=== PATIENT | female | born 1935 | race Caucasian/White ===

== ENCOUNTER 2020-06-18 15:27 | Inpatient (IN) ==
--- NOTE | 2020-06-18 15:53 | Emergency Department Note ---
History of Present Illness General Chief complaint: Shortness of Breath/Dyspnea Time Seen by Provider: 06/18/20 15:34 Source: patient and EMS Mode of arrival: EMS Limitations: physical limitation ([place]) History of Present Illness Provider complaint: Hypoxia, fatigue Onset (ago): week(s) 3 Associated symptoms: + loss of appetite, + malaise, + shortness of breath and + weakness; no chest pain, no cough and no fever/chills This is an 85-year-old female brought in via EMS from her outpatient doctor's office after being found to have a room air oxygen saturation of 70%. Patient states over the last several weeks she has been more fatigued than usual and sleeping more. Patient states she has not had any cough or cold symptoms, denies fevers or chills, chest pain, or abdominal pain. Patient states she has chronic swelling in her lower extremities, does not feel it is significantly worse. Patient states she did feel slightly short of breath at the doctor's office, however cannot tell me when that may have started. Patient was placed on oxygen for EMS and oxygen saturations did improve. Patient states that this time she feels she is getting enough air, and she is currently on 4 L/min via nasal cannula. Patient denies any history of smoking, asthma or COPD. Patient is uncertain regarding her listed cardiac history on information brought from EMS. Patient is a poor historian at bedside and very hard of hearing which limits history taking. Pt seen during a time of high acuity and national emergency pandemic while wearing PPE. Home Medications Home Medications Medication Instructions Recorded Confirmed Type amlodipine 10 mg PO DAILY 06/18/20 06/18/20 History aspirin [Aspirin Low Dose] 81 mg PO DAILY 06/18/20 06/18/20 History atorvastatin 10 mg PO PM 06/18/20 06/18/20 History hydralazine 10 mg PO BID 06/18/20 06/18/20 History metoprolol tartrate 25 mg PO BID 06/18/20 06/18/20 History pantoprazole 20 mg PO DAILY 06/18/20 06/18/20 History Allergies Allergy/AdvReac Type Severity Reaction Status Date / Time No Known Allergies Allergy Unverified 06/18/20 18:00 Past Med/Surg History Medical History Aortic stenosis Chronic ITP (idiopathic thrombocytopenia) CKD (chronic kidney disease), stage IV Diastolic dysfunction Dyslipidemia GERD (gastroesophageal reflux disease) Hip fracture, right S/p repair Hypertension Pulmonary hypertension Surgical History History of cataract surgery History of tonsillectomy and adenoidectomy Family History Mother Heart disease Social History Smoking Status: Never smoker Hx Alcohol Use: Yes Hx Substance Use: No Preferred Language: Arabic Communication Ability: Effective Integration Developer Required: No Beliefs That Will Affect Care: None marital status: Unknown Current Living Situation: Alone Feels Safe at Home: Yes Safety Concerns: Feels Safe At This Time Assistive Devices: Glasses, Oxygen - Continuous and Walker Assistive Devices Comment: has own walker Review of Systems See HPI for pertinent positives & negatives. and A total of 10 systems reviewed and were otherwise negative Physical Exam Vital Signs Vital Signs - 24 hr 06/18/20 15:37 Temperature 36.9 C Temperature Source Oral Pulse Rate 63 Respiratory Rate 22 Respiratory Effort / Characteristics Non-Labored Respiratory Depth Normal Blood Pressure 128/56 L Blood Pressure Mean 80 Blood Pressure Position Sitting Pulse Oximetry 85 L Oxygen Delivery Method Room Air Nasal Cannula Oxygen Flow Rate 4 Sepsis Recent Fever Within 48 Hours No Sepsis New/Unexplained Change in Mental Status No Sepsis Action Taken by Nursing No Action Required Oxygen Flow Rate - Titration 4 Pulse Oximetry Post Tiitration 95 GENERAL: alert, well appearing, well nourished, no distress, non-toxic, morbidly obese, [place] EYE EXAM: normal conjunctiva, PERRL and EOM's grossly intact OROPHARYNX: no exudate, no erythema, lips, buccal mucosa, and tongue normal and mucous membranes are moist NECK: supple, no nuchal rigidity, no adenopathy, non-tender LUNGS: Clear but decreased to auscultation. Normal chest wall mechanics, no w/r, fine bibasilar rales HEART: no murmurs, S1 normal and S2 normal ABDOMEN: abdomen soft, non-tender, normo-active bowel sounds, no masses, no rebound or guarding. BACK: Back is symmetrical on inspection and there is no deformity, no midline tenderness, no CVA tenderness. SKIN: no rashes and no bruising UPPER EXTREMITIES: upper extremities are grossly normal. FROM, nml pulses b/l. LOWER EXTREMITIES: 3+ chronic appearing pitting edema. FROM, nml pulses b/l. NEURO EXAM: Normal sensorium, cranial nerves II-XII grossly intact, normal speech, no gross weakness of arms, no significant gross weakness of legs. Gross sensation intact. Course Course 1741: Updated patient and granddaughter at bedside. Granddaughter able to provide additional history about the patient recently as well as in the past regarding her chronic kidney disease and aortic stenosis. They are in agreement with plan. Patient continues to be well-appearing here with nasal cannula oxygen in place holding oxygen saturations in the mid 90s. 1754: Case discussed with Selina Muniz hospitalist service. Administered Medications Amlodipine Besylate (Amlodipine Besylate 5 Mg Tab) 10 mg PO DAILY TATE Stop: 07/19/20 08:59 Last Admin: 06/19/20 07:45 Dose: 10 mg Documented by: [id number] Aspirin (Aspirin 81 Mg Ectab) 81 mg PO DAILY TATE Stop: 07/19/20 08:59 Last Admin: 06/19/20 07:44 Dose: 81 mg Documented by: [id number] Atorvastatin Calcium (Atorvastatin 10 Mg Tab) 10 mg PO PM TATE Stop: 07/18/20 20:59 Last Admin: 06/18/20 20:31 Dose: 10 mg Documented by: [id number] Hydralazine HCl (Hydralazine 10 Mg Tab) 10 mg PO BID TATE Stop: 07/18/20 20:59 Last Admin: 06/19/20 07:44 Dose: 10 mg Documented by: [id number] Admin: 06/18/20 20:31 Dose: 10 mg Documented by: [id number] Furosemide 100 mg/ Dextrose 100 mls @ 15 mls/hr IV .Q6H40M TATE Stop: 07/19/20 10:14 Last Admin: 06/19/20 16:46 Dose: 15 mg/hr, 15 mls/hr Documented by: [id number] Infusion: 06/19/20 16:46 Dose: 15 mg/hr, 15 mls/hr Documented by: [id number] Infusion: 06/19/20 14:31 Dose: 15 mg/hr, 15 mls/hr Documented by: [id number] Admin: 06/19/20 10:35 Dose: 15 mg/hr, 15 mls/hr Documented by: [id number] Heparin Sodium/Dextrose (Heparin Sodium/Dextrose) 25,000 units in 500 mls @ 19 mls/hr IV .Q24H TATE; Protocol Stop: 07/19/20 12:59 Last Titration: 06/19/20 18:49 Dose: 950 units/hr, 19 mls/hr Documented by: [id number] Cosigned by: [id number] Titration: 06/19/20 14:31 Dose: 950 units/hr, 19 mls/hr Documented by: [id number] Cosigned by: [id number] Admin: 06/19/20 14:09 Dose: 950 units/hr, 19 mls/hr Documented by: [id number] Cosigned by: [id number] Metoprolol Tartrate (Metoprolol Tartrate 25 Mg Tab) 25 mg PO BID TATE Stop: 07/18/20 20:59 Last Admin: 06/19/20 07:45 Dose: 25 mg Documented by: [id number] Admin: 06/18/20 20:31 Dose: 25 mg Documented by: [id number] Pantoprazole Sodium (Pantoprazole 40 Mg Tab) 40 mg PO DAILY TATE Stop: 07/19/20 08:59 Last Admin: 06/19/20 07:45 Dose: 40 mg Documented by: [id number] Discontinued Medications Dextrose (Dextrose 50% 50 Ml Syringe) 50 ml IV NOW STA Stop: 06/18/20 23:58 Last Admin: 06/19/20 00:32 Dose: 50 ml Documented by: [id number] Furosemide (Furosemide 40 Mg/4 Ml Vial) 40 mg IV NOW STA Stop: 06/18/20 17:07 Last Admin: 06/18/20 18:38 Dose: 40 mg Documented by: [id number] Insulin Human Regular 10 units (/ Syringe) 10 mls @ 0 mls/hr IV ONE STA Stop: 06/18/20 23:58 Last Admin: 06/19/20 00:31 Dose: 10 mls/hr Documented by: [id number] Cosigned by: [id number] Calcium Gluconate 1,000 mg/ (Sodium Chloride) 60 mls @ 240 mls/hr IV NOW STA Stop: 06/19/20 00:11 Last Infusion: 06/19/20 01:01 Dose: 0 mls/hr Documented by: [id number] Admin: 06/19/20 00:31 Dose: 240 mls/hr Documented by: [id number] Furosemide 100 mg/ Syringe 10 mls @ 4 mls/min IV ONE ONE Stop: 06/19/20 10:47 Last Admin: 06/19/20 10:47 Dose: 4 mls/min Documented by: [id number] Influenza Virus Vaccine Quadrival (Influenza Virus Quad Vaccine 0.5 Ml Syr) 0.5 ml IM .ONCE ONE Stop: 06/18/20 20:01 Last Admin: 06/19/20 15:11 Dose: Not Given Documented by: [id number] Sodium Polystyrene Sulfonate (Sodium Polystyrene Sulfonate 15g/60ml Susp) 45 gm PO NOW STA Stop: 06/18/20 23:58 Last Admin: 06/19/20 00:33 Dose: 45 gm Documented by: [id number] Critical Care Time Critical Care Time: Yes Total Critical Care Time: 36 Critical care of 36 min performed to assess and manage high likelihood of life- threatening hypoxia, involving labs and imaging performed with assessment to evaluate hypoxia diagnosis with frequent reassessment. This time includes bedside time, treatment discussions with patient/family/consultants, documentation time and excludes procedure time. Medical Decision Making Differential Diagnosis Differential diagnoses includes but is not limited to pneumonia, bronchitis, COPD/Asthma exacerbation, pneumothorax, pulmonary embolism, congestive heart failure, acute coronary syndrome Medical Records Attestation: I reviewed the patient's medical records. Home Medications Current Medication List: was personally reviewed by me Laboratory Data Attestation: I reviewed the patient's lab results. Result diagrams: 06/19/20 08:28 06/19/20 08:28 Lab Results 06/18/20 06/18/20 06/18/20 Range/Units 16:35 16:35 16:35 WBC 4.74 L (4.8-10.8) K/uL RBC 4.10 L (4.2-5.4) M/uL Hgb 11.8 L (12.0-16.0) g/dL Hct 39.8 (37-47) % MCV 97.1 (80-100) fL MCH 28.8 (25-34) pg MCHC 29.6 L (32-36) g/dL RDW Std Deviation 58.3 H (36.4-46.3) fL RDW Coeff of Tasia 16.4 H (11.5-14.5) % Plt Count 56 L (130-400) K/uL MPV 9.1 (7.4-10.4) fL Immature Gran % (Auto) 0.2 % Neut % (Auto) 82.3 % Lymph % (Auto) 6.8 % [place] % (Auto) 9.7 % Eos % (Auto) 0.8 % Baso % (Auto) 0.2 % Neut # (Auto) 3.90 (1.4-6.5) K/uL Lymph # (Auto) 0.32 L (1.2-3.4) K/uL [place] # (Auto) 0.46 (0.11-0.59) K/uL Eos # (Auto) 0.04 (0-0.5) K/uL Baso # (Auto) 0.01 (0-0.2) K/uL Immature Gran # (Auto) 0.01 (0.00-0.02) K/uL Platelet Estimate Decreased L (Normal) Ovalocytes 1+ Echinocytes 1+ PT 11.9 (9.0-12.0) Seconds INR 1.1 (0.9-1.1) Sodium 141 (136-145) mmol/L Potassium 6.0 H (3.5-5.1) mmol/L Chloride 114 H (98-107) mmol/L Carbon Dioxide 25 (21-32) mmol/L Anion Gap 2.0 L (3-11) BUN 96 H (7-18) mg/dl Creatinine 3.57 H (0.6-1.2) mg/dl Est Cr Clr Drug Dosing 14.6 ml/min Est GFR ( Amer) 12.7 Est GFR (Non-Af Amer) 10.9 BUN/Creatinine Ratio 26.9 H (10-20) Glucose 114 H (70-99) mg/dl Calcium 8.7 (8.5-10.1) mg/dl Magnesium 2.0 (1.8-2.4) mg/dl Total Bilirubin 0.5 (0.2-1) mg/dl AST 16 (15-37) U/L ALT 14 (12-78) U/L Alkaline Phosphatase 84 (45-117) U/L Troponin I 0.022 (0-0.045) ng/ml NT-Pro-B Natriuret Pep 44348 H (0-1800) pg/ml Total Protein 6.5 (6.4-8.2) gm/dl Albumin 2.9 L (3.4-5.0) gm/dl Globulin 3.6 (2.5-4.0) gm/dl Albumin/Globulin Ratio 0.8 L (0.9-2) Imaging Data Radiologist's Impression: SINGLE VIEW CHEST CLINICAL HISTORY: Dyspnea. FINDINGS: 2 AP, portable, upright chest radiographs are compared to study dated 05/11/2014. The examination is degraded by portable technique and patient rotation. The heart is mildly enlarged noting atherosclerotic calcification of the thoracic aorta. There is pulmonary vascular congestion. There are small pleural effusions with bibasilar consolidation. No pneumothorax is seen. The skeletal structures are osteopenic. Chronic posttraumatic deformity is noted in the right proximal humerus. Advanced arthritic change is seen in the shoulders. Calcified left axillary lymph nodes are partially visualized and unchanged from previous. IMPRESSION: 1. Cardiomegaly with evidence of congestive failure. 2. Small pleural effusions with bibasilar consolidation. This likely represents atelectasis and clinical correlation will be required. ACT 112: Negative or not required by law. Electronically signed by: Abbe Sinclair M.D. 06/18/2020 4:54 PM ECG Data Attestation: I personally reviewed and interpreted this ECG as follows: Indication: + SOB/dyspnea Rate (beats per minute): 62 Rhythm: + normal sinus ECG Intervals/blocks: + Normal QRS and + Normal QT ECG [place]: + Normal ECG ST segments: + Nonspecific ST abnormalities Additional Comments: Artifact noted on tracing, low voltage throughout, likely secondary to patient body habitus MDM Narrative This is an elderly female who presents with family after being found to be hypoxic at her family doctor's office. Patient initially taken due to increased lethargy over the last several weeks. Patient denies any shortness of breath, and family states that did not notice any increased work of breathing until the last 2 to 3 days. Patient denied any cough or URI symptoms. Patient transport ed via EMS with nasal cannula in place and oxygen saturations improved to the mid 90s. Patient had no increased work of breathing upon arrival here. Given bibasilar rales and lower extremity edema noted on exam, initial concern for CHF/pulmonary edema. Chest x-ray did confirm this. Patient was given a dose of Lasix in the emergency room. Patient with no prior history of CHF per family's report. No fevers to suggest occult infectious etiology. Labs did return showing worsening chronic kidney disease and mild hyperkalemia. I suspect this is all acute on chronic. Lasix will help with her hyperkalemia, no other EKG changes noted, and no ectopy noted on telemetry. Did not feel patient needed additional aggressive treatment of her hyperkalemia. Granddaughter bedside states patient had already previously refused dialysis. Patient's other labs reassuring. Thrombocytopenia was noted however this is chronic and stable as patient with a history of ITP. There is mention by both the granddaughter and an EMR of aortic stenosis. I could not see any results of her recent echo and granddaughter had thought had been several years, however in discussion with the hospitalist they found an echo from this past summer where patient had a normal ejection fraction, and moderate aortic stenosis was noted. It is unclear if her aortic stenosis could be contributing to her increased dyspnea, and will defer additional cardiac evaluation to inpatient team. Case discussed with hospitalist for additional evaluation and management. An order was placed for continuous cardiac monitoring. The monitor shows a rate of _75_ with _normal sinus_ rhythm. Impression & Plan Acute respiratory failure with hypoxia, Hyperkalemia, Acute kidney injury superimposed on CKD, Acute on chronic diastolic CHF (congestive heart failure), Obesity, Thrombocytopenia Discharge Plan Visit Data Chief Complaint: Shortness of Breath/Dyspnea ED Provider: Lianne Holley Discharge Problem: Acute respiratory failure with hypoxia, Hyperkalemia, Acute kidney injury superimposed on CKD, Acute on chronic diastolic CHF (congestive heart failure), Obesity, Thrombocytopenia Patient Disposition: Admitted As Inpatient Discharge Instructions Interventions: ED Discharge Assessment Last Done: 06/18/20 18:49 Discharge Problem: Obesity Qualifiers: Obesity type: unspecified obesity type Obesity classification: unspecified obesity classification Serious obesity comorbidity presence: unspecified whether serious comorbidity present Qualified Code(s): E66.9 - Obesity, unspecified
--- NOTE | 2020-06-18 16:55 | XRay Report ---
SINGLE VIEW CHEST CLINICAL HISTORY: Dyspnea. FINDINGS: 2 AP, portable, upright chest radiographs are compared to study dated 05/11/2014. The examin ation is degraded by portable technique and patient rotation. The heart is mildly enlarged noting ath erosclerotic calcification of the thoracic aorta. There is pulmonary vascular congestion. There are s mall pleural effusions with bibasilar consolidation. No pneumothorax is seen. The skeletal structures are osteopenic. Chronic posttraumatic deformity is noted in the right proximal humerus. Advanced art hritic change is seen in the shoulders. Calcified left axillary lymph nodes are partially visualized and unchanged from previous. IMPRESSION: 1. Cardiomegaly with evidence of congestive failure. 2. Small pleural effusions with bibasilar consolidation. This likely represents atelectasis and clini rima correlation will be required. ACT 112: Negative or not required by law. Electronically signed by: Abbe Sinclair M.D. 06/18/2020 4:54 PM
[2020-06-18 16:57] LABS: INR 1.1 (0.9-1.1); Prothrombin Time 11.9 Seconds (9.0-12.0)
[2020-06-18 17:01] LABS: Albumin Level 2.9 gm/dl (3.4-5.0); BUN Creatinine Ratio 26.9 (10-20); Calcium 8.7 mg/dl (8.5-10.1); Creatinine Clr Calc Pharmacy 14.6 ml/min; Est GFR (African American) 12.7; Est GFR (Non-African American) 10.9
[2020-06-18 17:06] LABS: Albumin Globulin Ratio 0.8 (0.9-2); Bilirubin,Total 0.5 mg/dl (0.2-1); Globulin 3.6 gm/dl (2.5-4.0); Total Protein 6.5 gm/dl (6.4-8.2); Troponin I 0.022 ng/ml (0-0.045)
[2020-06-18] MEDS ORDERED: FUROSEMIDE 40 MG/4 ML VIAL IV STA (17:06)
[2020-06-18 17:23] LABS: Hematocrit (blood only) 39.8 % (37-47); Hemoglobin 11.8 g/dL (12.0-16.0); Mean Corpuscular Hemoglobin 28.8 pg (25-34); Mean Corpuscular Hgb Conc 29.6 g/dL (32-36); Mean Corpuscular Volume 97.1 fL (80-100); Mean Platelet Volume 9.1 fL (7.4-10.4); Platelet Count 56 K/uL (130-400); RDW Coefficient of Variation 16.4 % (11.5-14.5); RDW Standard Deviation 58.3 fL (36.4-46.3); White Blood Count 4.74 K/uL (4.8-10.8)
[2020-06-18 17:24] LABS: Basophils # (auto) 0.01 K/uL (0-0.2); Basophils % (auto) 0.2 %; Echinocytes 1+; Eosinophils # (auto) 0.04 K/uL (0-0.5); Eosinophils % (auto) 0.8 %; Immature Granulocytes # (auto) 0.01 K/uL (0.00-0.02); Immature Granulocytes % (auto) 0.2 %; Lymphocytes # (auto) 0.32 K/uL (1.2-3.4); Lymphocytes % (auto) 6.8 %; Monocytes # (auto) 0.46 K/uL (0.11-0.59); Monocytes % (auto) 9.7 %; Neutrophils % (auto) 82.3 %; Ovalocytes 1+; Platelet Estimate Decreased (Normal)
[2020-06-18 19:08] LABS: Appearance Urine Cloudy (Clear); Bilirubin Urine Negative (Negative); Blood Urine Negative (Negative); Color Urine Yellow; Epithelial Cell Urine Auto >30 /lpf (0-5); Glucose Urine UA Negative (Negative); Ketones Urine Negative (Negative); Leukocyte Esterase Urine 1+ (Negative); Nitrite Urine Negative (Negative); Protein Urine Trace (Negative); RBC Urine Automated 0-4 /hpf (0-4); Specific Gravity Urine 1.021 (1.000-1.030); Urobilinogen Urine Negative (Negative)
[2020-06-18 19:26] LABS: Bacteria Urine Automated 2+ (Negative)
[2020-06-18] MEDS ORDERED: ACETAMINOPHEN 325 MG TAB PO PRN (19:42)
--- NOTE | 2020-06-18 19:59 | History & Physical Report ---
Date of Service June 18, 2020 Assessment & Plan (1) Acute on chronic diastolic CHF (congestive heart failure): (2) Acute respiratory failure with hypoxia: (3) Aortic stenosis: -Admit to telemetry -Patient presenting by referral PCPs office after she was evaluated there for reports of fatigue lower extremity edema, and exertional shortness of breath, found to be hypoxic on room air -In the ED, patient hypoxic on room air at 85%, currently saturating well on 4 L of oxygen via nasal cannula -CXR showing signs of CHF, proBNP 14,000 -Echo 02/2020: EF 60%, diastolic dysfunction, moderate aortic valve stenosis -S/p Lasix 40 mg IV in the ED. Given NIRAV, will hold on further diuretic dosing for now and reassess after morning labs. -Landin placed for strict I's and O's, daily weights, low Na+ diet -Update echo -Cardiology consult, input appreciated (4) Acute kidney injury superimposed on CKD: (5) CKD (chronic kidney disease), stage IV: -Baseline creatinine runs in the mid 2's -3.5 today -Diuresis as above -Nephrology consult, input appreciated (6) Hyperkalemia: -K+ 6.0 -No EKG changes -Received Lasix 40 mg IV, this should improve the potassium. Recheck BMP at 2300. (7) Hypertension: -BP controlled, continue amlodipine, metoprolol, hydralazine (8) Chronic ITP (idiopathic thrombocytopenia): -Platelets 56K -No signs of bleeding, monitor daily CBC (9) DVT prophylaxis: -SCDs due to thrombocytopenia Admission and Anticipated Discharge Date Admission Date: June 18, 2020 History of Present Illness Chief Complaint: Fatigue, shortness of breath Primary Care Provider: Karina Pham DO 85-year-old female with PMH pulmonary hypertension, aortic stenosis, HTN, diastolic dysfunction, CKD stage IV, and other problems listed below who presents the ED for evaluation of fatigue and shortness of breath. History is limited from the patient due to hearing impairment. History is obtained from patient's granddaughter who is the bedside. Patient has been having increasing fatigue over the past 2 weeks and has been sleeping a lot. She also has developed shortness of breath on minimal exertion. Over the past few days, lower extremity edema has been worsening. Patient was seen by PCPs office today and found to be hypoxic and was referred to the ED for further evaluation. No other recent illnesses, fevers, chills. Patient denies chest pain. No lightheadedness, dizziness, diaphoresis, syncopal events. Denies abdominal pa in, nausea, vomiting, diarrhea. No urinary symptoms. In the ED, patient was hypoxic on room air at 85%, currently saturating well on 4 L of oxygen via nasal cannula. CXR shows signs of CHF, proBNP 14,000. Creatinine 3.5 (up from baseline of the mid twos). K+ 6.0. Patient was given Lasix 40 mg IV. Allergies Allergy/AdvReac Type Severity Reaction Status Date / Time No Known Allergies Allergy Unverified 06/18/20 18:00 Home Medications Home Medications Medication Instructions Recorded Confirmed Type amlodipine 10 mg PO DAILY 06/18/20 06/18/20 History aspirin [Aspirin Low Dose] 81 mg PO DAILY 06/18/20 06/18/20 History atorvastatin 10 mg PO PM 06/18/20 06/18/20 History hydralazine 10 mg PO BID 06/18/20 06/18/20 History metoprolol tartrate 25 mg PO BID 06/18/20 06/18/20 History pantoprazole 20 mg PO DAILY 06/18/20 06/18/20 History Past Med/Surg History Medical History Aortic stenosis Chronic ITP (idiopathic thrombocytopenia) CKD (chronic kidney disease), stage IV Diastolic dysfunction Dyslipidemia GERD (gastroesophageal reflux disease) Hip fracture, right S/p repair Hypertension Pulmonary hypertension Surgical History History of cataract surgery History of tonsillectomy and adenoidectomy Family History Mother Heart disease Social History Smoking Status: Never smoker Hx Alcohol Use: Yes Hx Substance Use: No Preferred Language: Telugu Communication Ability: Effective Manufacturing Operations Manager Required: No Beliefs That Will Affect Care: None Current Living Situation: Alone Feels Safe at Home: Yes Safety Concerns: Feels Safe At This Time Assistive Devices: Glasses and Walker Assistive Devices Comment: has own walker Review of Systems Review of Systems: ROS per HPI, all other systems reviewed and negative Physical Exam Constitutional: WD/WN, vitals as above + obese Eyes: PERRL, conjunctivae normal, anicteric sclerae ENMT: external ear and nose normal, oropharynx normal Ears: + hearing impairment Respiratory: normal respiratory effort; no respiratory distress Auscultation: + diminished lung sounds (Bilaterally) Cardiovascular: Rate/Rhythm: regular rate and regular rhythm Heart Sounds: + murmur (Systolic, grade 3/6) Vessels: normal peripheral pulses Extremities: + edema (+3 pitting edema BLE) Gastrointestinal (Abdomen): normal bowel sounds, soft, nontender, no hepatosplenomegaly Musculoskeletal: no cyanosis or clubbing, extremities motor strength 5/5 Skin: no rashes, warm and dry Chronic erythema/venous changes noted to BLE Neurologic: PERRL, EOMI, accommodation nl, no face palsy, no dysarthria Psychiatric: A+Ox3, euthymic affect Results & Data Results & Data ([facility]) Vital Signs (Past 12 Hours) Vital Signs Temp Pulse Pulse Resp BP BP Pulse Ox 06/18/20 18:00 61 17 97 06/18/20 17:35 72 22 122/58 L 95 06/18/20 16:00 60 19 99 06/18/20 15:37 36.9 C 63 22 128/56 L 85 L 06/18/20 15:35 60 22 128/56 L 98 Laboratory Results Short CBC 06/18/20 Range/Units 16:35 WBC 4.74 L (4.8-10.8) K/uL Hgb 11.8 L (12.0-16.0) g/dL Hct 39.8 (37-47) % Plt Count 56 L (130-400) K/uL BMP 06/18/20 16:35 Sodium 141 Potassium 6.0 H Chloride 114 H Carbon Dioxide 25 BUN 96 H Creatinine 3.57 H Glucose 114 H Calcium 8.7 Cardiac Enzymes 06/18/20 Range/Units 16:35 Troponin I 0.022 (0-0.045) ng/ml Liver Function 06/18/20 Range/Units 16:35 Total Bilirubin 0.5 (0.2-1) mg/dl AST 16 (15-37) U/L ALT 14 (12-78) U/L Alkaline Phosphatase 84 (45-117) U/L Albumin 2.9 L (3.4-5.0) gm/dl Urine 06/18/ Range/Units 18:35 Urine Color Yellow Urine Appearance Cloudy A (Clear) Urine pH 5.0 (4.5-7.5) Ur Specific Vendor 1.021 (1.000-1.030) Urine Protein Trace H (Negative) Urine Glucose (UA) Negative (Negative) Diagnostic Findings CXR IMPRESSION: 1. Cardiomegaly with evidence of congestive failure. 2. Small pleural effusions with bibasilar consolidation. This likely represents atelectasis and clinical correlation will be required. Code Status & VTE Plan Code Status Patient is a DNR as per my discussion with patient's granddaughter who is the bedside. VTE Prophylaxis Plan VTE Prophylaxis will be ordered: Yes Supervising Physician Co-Signing Physician Notes Attending addendum: The patient was seen and examined in telemetry unit She is very hard of hearing and was admitted from PCPs office with fatigue, lower extremity edema and exertional shortness of breath Denies any acute symptoms during examination On examination Lying in bed comfortably Hemodynamically stable Chest-decreased breath sounds at the bases with crackles Heart-S1-S2 with 2/6 ESM at the aortic area Abdomen-benign Extremities 1-2+ edema bilaterally [employer]-extremely deaf, alert and awake Admission labs, EKG and imaging studies reviewed Has acute on chronic diastolic CHF complicated by aortic stenosis Acute on chronic kidney failure with hyperkalemia Agree with assessment and plan as outlined above by Cristy Corona
[2020-06-18] MEDS ORDERED: INFLUENZA ADMINISTRATION CHARGE ONE (20:00)
[2020-06-18] MEDS ORDERED: INFLUENZA VIRUS QUAD VACCINE 0.5 ML SYR IM ONE (20:00)
[2020-06-18] MEDS: METOPROLOL TARTRATE 25 MG TAB PO SCH (20:31)
[2020-06-18] MEDS: ATORVASTATIN 10 MG TAB PO SCH (20:31)
[2020-06-18] MEDS: hydrALAZINE 10 MG TAB PO SCH (20:31)
[2020-06-18] MEDS ORDERED: HEPARIN SOD 5,000 UNIT/0.5 ML VIAL SQ SCH (22:00)
--- NOTE | 2020-06-18 23:03 | Electrocardiogram Report ---
Test Reason : Blood Pressure : / mmHG Vent. Rate : 062 BPM Atrial Rate : 062 BPM P-R Int : 160 ms QRS Dur : 082 ms QT Int : 402 ms P-R-T Axes : 029 016 023 degrees QTc Int : 408 ms Normal sinus rhythm Low voltage QRS Cannot rule out Anterior infarct , age undetermined Nonspecific T wave abnormality Abnormal ECG When compared with ECG of 10-MAY-2016 00:35, Premature atrial complexes are no longer Present Confirmed by Jim Mcnally ([id number]) on 06/18/2020 11:02:56 PM Referred By: Confirmed By:Jim Mcnally
[2020-06-18 23:50] LABS: BUN Creatinine Ratio 27.5 (10-20); Calcium 8.2 mg/dl (8.5-10.1); Creatinine Clr Calc Pharmacy 14.7 ml/min; Est GFR (African American) 12.9; Est GFR (Non-African American) 11.2; Potassium 6.1 mmol/L (3.5-5.1)
[2020-06-18] MEDS ORDERED: INSULIN HUMAN REGULAR PER UNIT 10 UNITS in SYRINGE 9.9 ML IV STA (23:57)
[2020-06-18] MEDS ORDERED: DEXTROSE 50% 50 ML SYRINGE IV STA (23:57)
[2020-06-18] MEDS ORDERED: SODIUM POLYSTYRENE SULFONATE 15G/60ML SUSP PO STA (23:57)
[2020-06-18] MEDS ORDERED: CALCIUM GLUCONATE 10% 1,000 MG in SODIUM CHLORIDE 0.9% 50 ML IV STA (23:57)
[2020-06-19] MEDS: ASPIRIN 81 MG ECTAB PO SCH (07:44)
[2020-06-19] MEDS: hydrALAZINE 10 MG TAB PO SCH ×2 (07:44→20:05)
[2020-06-19] MEDS: PANTOprazole 40 MG TAB PO SCH (07:45)
[2020-06-19] MEDS: METOPROLOL TARTRATE 25 MG TAB PO SCH ×2 (07:45→20:05)
--- NOTE | 2020-06-19 08:34 | Electrocardiogram Report ---
Test Reason : Blood Pressure : / mmHG Vent. Rate : 070 BPM Atrial Rate : 070 BPM P-R Int : 176 ms QRS Dur : 078 ms QT Int : 386 ms P-R-T Axes : 088 031 047 degrees QTc Int : 416 ms Poor data quality, interpretation may be adversely affected Sinus rhythm with occasional Premature atrial complexes Diffuse Nonspecific T wave abnormality Low voltage QRS Borderline ECG When compared with ECG of 18-JUN-2020 15:34, No significant change Confirmed by Reese Edwards ([id number]) on 06/19/2020 8:33:49 AM Referred By: Karina Pham Confirmed By:Reese Edwards
[2020-06-19 08:38] LABS: Hematocrit (blood only) 40.1 % (37-47); Hemoglobin 11.7 g/dL (12.0-16.0); Mean Corpuscular Hemoglobin 28.9 pg (25-34); Mean Corpuscular Hgb Conc 29.2 g/dL (32-36); Nucleated RBC # (auto) 0.02 K/uL (0-0); Nucleated RBC % (auto) 0.3 %; RDW Coefficient of Variation 16.5 % (11.5-14.5); RDW Standard Deviation 59.3 fL (36.4-46.3); Red Blood Count 4.05 M/uL (4.2-5.4); White Blood Count 4.62 K/uL (4.8-10.8)
[2020-06-19 08:47] LABS: Mean Platelet Volume 9.9 fL (7.4-10.4); Platelet Count 53 K/uL (130-400)
[2020-06-19] MEDS ORDERED: amLODIPine BESYLATE 5 MG TAB PO SCH (09:00)
[2020-06-19 09:07] LABS: BUN Creatinine Ratio 26.7 (10-20); Calcium 8.6 mg/dl (8.5-10.1); Creatinine Clr Calc Pharmacy 14.2 ml/min; Est GFR (African American) 12.5; Est GFR (Non-African American) 10.8; Potassium 5.5 mmol/L (3.5-5.1)
--- NOTE | 2020-06-19 10:25 | Nephrology Consultation ---
Date of Consultation June 19, 2020 Assessment & Plan (1) Acute kidney injury superimposed on CKD: Patient went acute sghcyt-opey-iup CKD likely due to cardiorenal syndrome. Baseline creatinine in the mid twos. Creatinine today of 3.6. She has hyperkalemia. She is oliguric. Patient will likely require dialysis this admission if she does not respond to diuresis. Will attempt diuresis. -Monitor input output and daily BMP -Avoid nephrotoxins such as contrast unless lifesaving (2) Acute on chronic diastolic CHF (congestive heart failure): Patient with diastolic CHF and moderate aortic stenosis. Recent echo showed EF of 60%. Chest x-ray showing pulmonary edema. -We will give IV Lasix 100 mg bolus followed by Lasix drip at 15 mg/h. -Patient should be on a cardiac diet. (3) Hyperkalemia: Recent potassium of 5.5 which is above target. Patient received Kayexalate and had a large bowel movement. Will monitor potassium daily. -Lasix should help with kaliuresis if patient responds. -Low K diet History of Present Illness Reason for Consultation: Acute kidney injury on CKD, CHF Requesting Physician: Elvie Miramontes MD Attending Physician: Elvie Miramontes MD History of Present Illness This is a 85-year-old female with history of hypertension, moderate aortic steno sis on recent echo, diastolic CHF with EF of 60% and CKD stage IV baseline creatinine in the mid twos who was admitted on 06/18/2020 with shortness of breath. She has had progressively worsening shortness of breath over the past 2 weeks. She was seen at the PCPs office and was hypoxic in the mid 80s. Chest x-ray in the emergency room showed pulmonary edema. Patient also had worsening renal function with creatinine of 3.6 and BUN of 97. She had hyperkalemia of 6.1 slightly better at 5.5 today. She received Kayexalate and just had a large bowel movement. Urine output is minimal. She is on oxygen by nasal cannula. Patient is hard of hearing but able to answer some questions. She complains of leg swelling. She is denying shortness of breath and reports to be feeling fine. She has a Landin catheter. Allergies Allergy/AdvReac Type Severity Reaction Status Date / Time No Known Allergies Allergy Unverified 06/18/20 18:00 Home Medications Home Medications Medication Instructions Recorded Confirmed Type amlodipine 10 mg PO DAILY 06/18/20 06/18/20 History aspirin [Aspirin Low Dose] 81 mg PO DAILY 06/18/20 06/18/20 History atorvastatin 10 mg PO PM 06/18/20 06/18/20 History hydralazine 10 mg PO BID 06/18/20 06/18/20 History metoprolol tartrate 25 mg PO BID 06/18/20 06/18/20 History pantoprazole 20 mg PO DAILY 06/18/20 06/18/20 History Patient History Medical History Aortic stenosis Chronic ITP (idiopathic thrombocytopenia) CKD (chronic kidney disease), stage IV Diastolic dysfunction Dyslipidemia GERD (gastroesophageal reflux disease) Hip fracture, right S/p repair Hypertension Pulmonary hypertension Surgical History History of cataract surgery History of tonsillectomy and adenoidectomy Family History Mother Heart disease Social History Smoking Status: Never smoker Hx Alcohol Use: Yes Hx Substance Use: No Preferred Language: Romanian Communication Ability: Effective [employer] Platemaker Required: No Beliefs That Will Affect Care: None Current Living Situation: Alone Feels Safe at Home: Yes Safety Concerns: Feels Safe At This Time Assistive Devices: Glasses and Walker Assistive Devices Comment: has own walker Review of Systems Review of Systems: All systems reviewed & are unremarkable except as noted in HPI & below Physical Exam Physical Exam: General exam: Appears comfortable, no acute distress HEENT: Pupils are equal and reactive to light Neck: No JVD, neck is supple trachea is midline Respiratory system: Crackles bilaterally. Gastrointestinal: Abdomen is soft, non distended, non tender, bowel sounds are present CVS: Regular rate and rhythm. No murmurs, rubs or gallops Musculoskeletal: No joint or muscle tenderness Extremities: Non tender, 2+ edema, warm peripheries Neuro: Oriented, hard of hearing, no tremors, no focal neurological deficits Skin: No rashes, erythema in the lower legs Results & Data ([facility]) Vital Signs (Past 12 Hours) Vital Signs Temp Pulse Resp BP Pulse Ox 06/19/20 08:09 36.3 C L 73 16 137/63 73 L 06/19/20 03:59 36.4 C L 66 16 132/63 92 06/19/20 00:49 36.3 C L 56 L 18 105/61 92 Laboratory Results 06/19/20 08:28 06/18/20 06/18/20 06/19/20 16:35 16:35 08:28 WBC 4.74 L 4.62 L RBC 4.10 L 4.05 L MCV 97.1 99.0 MCH 28.8 28.9 MCHC 29.6 L 29.2 L RDW Std Deviation 58.3 H 59.3 H RDW Coeff of Tasia 16.4 H 16.5 H Plt Count 56 L 53 L MPV 9.1 9.9 Albumin 2.9 L
[2020-06-19] MEDS: FUROSEMIDE 100 MG in DEXTROSE 5% 90 ML IV SCH ×3 (10:35→22:18)
[2020-06-19] MEDS ORDERED: FUROSEMIDE 100 MG in SYRINGE 0 ML IV ONE (10:45)
--- NOTE | 2020-06-19 11:50 | Communication Note ---
Date of Service: June 19, 2020 Attending note: Patient admitted with shortness of breath, hypoxia, In acute renal failure, respiratory distress, Got call from cardiology, patient's echocardiogram shows dilated RV, with increased pulmonary pressures suggestive of pulmonary embolism. Ordered for lower extremity Doppler to assess for DVT, check D-dimer and BNP Patient has history of ITP platelet count 65 only So stage IVV renal failure with creatinine clearance of less than 15 Option for anticoagulations limited, IV heparin versus argatroban Left voice message for Dr. Samayoa to discuss the case Continue to monitor patient in PCU/telemetry Will update the family members over phone Elvie Miramontes MD
[2020-06-19] MEDS ORDERED: Heparin IV Low Dose *NO* Bolus IV SCH (13:00)
[2020-06-19 13:04] LABS: D Dimer 7300 ug/L FEU (0-500)
--- NOTE | 2020-06-19 13:05 | Communication Note ---
Date of Service: June 19, 2020 Attending note : Spoke with Heme/Onc Dr Man Castro for anticoagulation choice for possible PE recommends to start on Low Dose IV heparin with now bolus follow up CBC closely , monitor for bleeding issues Platelet 65 recommend to transfuse if platelet drop less that 20 ( higher threshold - /usually platelet transfusion required for platelet < 10 ) as pt is on active anticoagulation Elvie Miramontes MD
--- NOTE | 2020-06-19 13:32 | Ultrasound Report ---
ULTRASOUND BILATERAL LOWER EXTREMITY VENOUS CLINICAL HISTORY: Lower extremity edema. COMPARISON STUDY: No priors. TECHNIQUE: Real-time, grayscale, and color Doppler sonography of the deep veins of the right and left lower extremity was performed from the inguinal crease to the calf. Compression and augmentation wer e utilized. The examination is degraded by lower extremity edema and lack of patient cooperation. FINDINGS: Right lower extremity: There is no sonographic evidence of deep venous thrombosis identified in the r ight lower extremity. The common femoral, superficial femoral, and popliteal veins are patent and nor nina compressible. The greater saphenous vein and the profunda femoris vein at the junction with the common femoral vein are clear. The visualized calf veins are patent. Soft tissue edema is present in the right lower extremity. Left lower extremity: Occlusive deep venous thrombosis is identified in the proximal and mid portions of the left superficial femoral vein. The distal superficial femoral vein is not visualized. The com mon femoral vein and the popliteal vein Are patent and normally compressible. The greater saphenous v ein and the profunda femoris vein at the junction with the common femoral vein are clear. The visuali zed calf veins are patent. Soft tissue edema is present in the left lower extremity. IMPRESSION: 1. There is occlusive deep venous thrombosis identified in the proximal to mid portions of the left s uperficial femoral vein. 2. There is no sonographic evidence of deep venous thrombosis identified in the right lower extremity . ACT 112: Negative or not required by law. Electronically signed by: Abbe Sinclair M.D. 06/19/2020 1:30 PM
[2020-06-19] MEDS: HEPARIN SODIUM/DEXTROSE 25,000 UNITS/500 ML BAG IV SCH (14:09)
[2020-06-19 14:49] LABS: Partial Thromboplastin Ratio 1.1; Partial Thromboplastin Time 30.5 Seconds (21.0-31.0)
--- NOTE | 2020-06-19 14:49 | Communication Note ---
Date of Service: June 19, 2020 Attending note: Spoke with patient's daughter over the phone, updated regarding echocardiogram findings suggestive of pulmonary embolism, lower extremity DVT, and patient's current anticoagulant treatment with IV heparin daughter Agreeable with the plan of care Patient has been sedentary for last 2 weeks, daughter admits that she has been sleeping on her recliner both day and night, hardly getting up or moving around. Possible caused provoked DVT on lower extremity and later propagation to the lungs causing pulmonary embolism, right-sided heart strain and pulmonary hypertension Confirmatory test with CT chest with contrast could not be done as it will possibly cause a complete shutdown of the kidney requiring dialysis. Per daughter: Patient has been refusing dialysis for long time, Does not want any intervention or study that can compromise her kidney further. We will update nephrology and cardiology Patient is continued with IV heparin wt -based protocol Without option for dialysis, right-sided heart failure possible secondary to large PE, cardiorenal symptoms patient's overall prognosis remains very poor. Patient's daughter will be in hospital tomorrow for visit We will discussed with patient and her daughter tomorrow regarding goals of care Elvie Miramontes MD
--- NOTE | 2020-06-19 14:50 | Communication Note ---
Date of Service: June 19, 2020
--- NOTE | 2020-06-19 14:51 | Cardiology Consultation ---
Date of Consultation June 19, 2020 Assessment & Plan (1) Acute respiratory failure with hypoxia: (2) Pulmonary embolism: (3) Acute right-sided heart failure: (4) Chronic ITP (idiopathic thrombocytopenia): (5) Aortic stenosis: (6) CKD (chronic kidney disease), stage IV: (7) Hypertension: (8) Acute kidney injury superimposed on CKD: Given the echocardiographic findings recommend treating the patient for acute pulmonary embolism. She is in acute right-sided heart failure, however, given the acute embolism she will be preload dependent and would recommend backing off on diuresis at this time. Primary team reportedly discussed case with hematology and heparin was started. Diuresis being attempted by our nephrology colleagues with significant possibility for the need for hemodialysis this admission. Continue outpatient doses of aspirin, amlodipine, atorvastatin, metoprolol and hydralazine. Continue to monitor on telemetry. History of Present Illness Reason for Consultation: Acute decompensated heart failure Requesting Physician: Dr. Michael Attending Physician: Elvie Miramontes MD History of Present Illness Ms. Mccloud is a 85-year-old woman who is not known to our cardiology practice. She presented to [facility] emergency department on 06/18/2020 with complaints of shortness of breath and fatigue. She is significantly hard of hearing which limits her ability to provide a full history. History obtained through review of medical records and discussion with nursing. Currently, she states that her breathing is back to normal but she is very tired. She specifically denies any chest pain, palpitations, lightheadedness, dizziness or syncope. She was admitted with a diagnosis of acute decompensated diastolic heart failure. Cardiology was consulted and echocardiogram was performed. Echocardiogram showed signs of acute right ventricular systolic failure concerning for pulmonary embolism. The primary team was notified of this result as well as the recommendation to review her case with hematology given her history of ITP and need for anticoagulation. This was done by the primary team. Allergies Allergy/AdvReac Type Severity Reaction Status Date / Time No Known Allergies Allergy Unverified 06/18/20 18:00 Home Medications Home Medications Medication Instructions Recorded Confirmed Type amlodipine 10 mg PO DAILY 06/18/20 06/18/20 History aspirin [Aspirin Low Dose] 81 mg PO DAILY 06/18/20 06/18/20 History atorvastatin 10 mg PO PM 06/18/20 06/18/20 History hydralazine 10 mg PO BID 06/18/20 06/18/20 History metoprolol tartrate 25 mg PO BID 06/18/20 06/18/20 History pantoprazole 20 mg PO DAILY 06/18/20 06/18/20 History Patient History Medical History Aortic stenosis Chronic ITP (idiopathic thrombocytopenia) CKD (chronic kidney disease), stage IV Diastolic dysfunction Dyslipidemia GERD (gastroesophageal reflux disease) Hip fracture, right S/p repair Hypertension Pulmonary hypertension Surgical History History of cataract surgery History of tonsillectomy and adenoidectomy Family History Mother Heart disease Social History Smoking Status: Never smoker Hx Alcohol Use: Yes Hx Substance Use: No Preferred Language: Lebanese Communication Ability: Effective Checker Cashier Required: No Beliefs That Will Affect Care: None Current Living Situation: Alone Feels Safe at Home: Yes Safety Concerns: Feels Safe At This Time Assistive Devices: Glasses, Oxygen - Continuous and Walker Assistive Devices Comment: has own walker Review of Systems Review of Systems: All systems reviewed & are unremarkable except as noted in HPI & below Physical Exam Physical Exam: General: Awake, alert and oriented x 3. No acute distress. HEENT: Normocephalic, atraumatic. Pupils equal, round and reactive to light and accommodation. Extraocular muscles are intact. Anicteric sclera. Moist mucous membranes. Neck: No JVD. No bruit. Cardiovascular: Regular. Positive S-4. Normal S-1 and S-2. No S-3. 3/6 mid to late systolic ejection murmur, greatest at the right sternal border, second intercostal space with radiation to the bilateral carotids. No rubs. Pulmonary: Clear to auscultation bilaterally. No rales, rhonchi, or wheezing. Abdomen: Bowel sounds x 4, soft. No rebound, guarding or tenderness. No organomegaly. Extremities: No clubbing, cyanosis or edema. +2 pedal pulses bilaterally. Skin: Warm and dry. Results & Data ([facility]) Vital Signs (Past 12 Hours) Vital Signs Temp Pulse Resp BP Pulse Ox 06/19/20 11:43 36.4 C L 64 18 117/69 91 06/19/20 08:09 36.3 C L 73 16 137/63 73 L 06/19/20 03:59 36.4 C L 66 16 132/63 92
--- NOTE | 2020-06-19 18:05 | Hospitalist Progress Note ---
Date of Service June 19, 2020 Assessment & Plan (1) Acute respiratory failure with hypoxia: -Patient presenting by referral PCPs office after she was evaluated there for reports of fatigue lower extremity edema, and exertional shortness of breath, found to be hypoxic on room air -In the ED, patient hypoxic on room air at 85%, currently saturating well on 4 L of oxygen via nasal cannula Possible secondary to pulmonary emboli causing right heart failure cor pulmonale Echo shows significantly dilated RV, with evidence of increased pulmonary hypertension Lower extremity Doppler positive for DVT on left popliteal vein Patient started on IV heparin low-dose weight-based protocol, history of ITP,- choice of anticoagulation discussed with hematology oncology Dr. Man Castro Continue patient with active anticoagulation Monitor daily CBC (2) Acute on chronic diastolic CHF (congestive heart failure): -CXR showing signs of CHF, proBNP 14,000 Acute right heart failure secondary to cor pulmonale pulmonary hypertension possibly underlying large PE, Echo dilated RV with evidence of pulmonary hypertension pt also in oliguric renal failure /acute renal failure with advanced stage v CKD , on IV lasix gtt -minimum urine out put -causing continued vol overload spoke with patient does not want Dialysis aware that with out dialysis her chance of survival is poor Overall prognosis remains poor (3) Aortic stenosis: (4) Acute kidney injury superimposed on CKD: Advanced CKD stage IV v GFR less than 20 Worsening of renal function renal failure secondary to cold pulmonal /cardiorenal syndrome Patient input from nephrology, Ordered IV Lasix drip-minimum urine out put Was offered for dialysis in the past has refused. Overall prognosis remains poor (5) CKD (chronic kidney disease), stage IV: - (6) Hyperkalemia: Due to acute renal failure Given IV Lasix drip, Kayexalate Potassium level improved continue to monitor (7) Hypertension: (8) Chronic ITP (idiopathic thrombocytopenia): On IV heparin weight-based protocol, Daily CBC (9) DVT prophylaxis: -IV heparin CODE STATUS full code will d/w pt and Daughter re addressing code status , as over all prognosis poor need to discuss about goals of care and palliative care evaluation Admission and Anticipated Discharge Date Admission Date: June 18, 2020 Subjective very hard of hearing hypoxic , on 5 L 02 gets SOB during conversation no chest pain Review of Systems Review of Systems: All systems reviewed & are unremarkable except as noted in HPI & below Physical Exam Constitutional: WD/WN, vitals as above + ill appearing Eyes: + anicteric sclerae ENMT: external ear and nose normal, oropharynx normal Neck: trachea midline, no thyromegaly Respiratory: + respiratory distress Auscultation: + crackles and + rales Cardiovascular: Rate/Rhythm: regular rate and regular rhythm Extremities: + edema Gastrointestinal (Abdomen): Percussion/Palpation: abdomen soft; abdomen nontender Neurologic: PERRL, EOMI, accommodation nl, no face palsy, no dysarthria Psychiatric: A+Ox3, euthymic affect Results & Data Results & Data ([facility]) Vital Signs (Past 12 Hours) Vital Signs Temp Pulse Pulse Resp BP Pulse Ox 06/19/20 15:37 36.4 C L 70 20 123/67 90 06/19/20 14:56 64 06/19/20 11:43 36.4 C L 64 18 117/69 91 06/19/20 08:09 36.3 C L 73 16 137/63 73 L
[2020-06-19] MEDS: ATORVASTATIN 10 MG TAB PO SCH (20:05)
[2020-06-19 20:58] LABS: Partial Thromboplastin Ratio 2.5
[2020-06-19 21:00] LABS: Partial Thromboplastin Time 68.9 Seconds (21.0-31.0)
[2020-06-20 02:14] LABS: Hematocrit (blood only) 39.6 % (37-47); Hemoglobin 11.6 g/dL (12.0-16.0); Mean Corpuscular Hgb Conc 29.3 g/dL (32-36); Nucleated RBC # (auto) 0.02 K/uL (0-0); Nucleated RBC % (auto) 0.4 %; RDW Coefficient of Variation 16.5 % (11.5-14.5); RDW Standard Deviation 59.7 fL (36.4-46.3)
[2020-06-20 02:32] LABS: Calcium 8.2 mg/dl (8.5-10.1); Creatinine Clr Calc Pharmacy 14.1 ml/min; Est GFR (African American) 12.3; Est GFR (Non-African American) 10.7; Potassium 5.1 mmol/L (3.5-5.1)
[2020-06-20 02:33] LABS: Partial Thromboplastin Ratio 2.8
[2020-06-20 02:34] LABS: Mean Platelet Volume 10.2 fL (7.4-10.4); Platelet Count 57 K/uL (130-400)
[2020-06-20 02:43] LABS: Eosinophils # (auto) 0.04 K/uL (0-0.5); Eosinophils % (auto) 0.7 %; Immature Granulocytes # (auto) 0.03 K/uL (0.00-0.02); Immature Granulocytes % (auto) 0.5 %; Lymphocytes # (auto) 0.26 K/uL (1.2-3.4); Lymphocytes % (auto) 4.6 %; Monocytes # (auto) 0.51 K/uL (0.11-0.59); Monocytes % (auto) 9.1 %; Neutrophils # (auto) 4.76 K/uL (1.4-6.5); Neutrophils % (auto) 85.1 %
[2020-06-20 02:46] LABS: Partial Thromboplastin Time 76.9 Seconds (21.0-31.0)
[2020-06-20] MEDS: FUROSEMIDE 100 MG in DEXTROSE 5% 90 ML IV SCH ×4 (03:19→21:57)
[2020-06-20] MEDS: ASPIRIN 81 MG ECTAB PO SCH (08:03)
[2020-06-20] MEDS: PANTOprazole 40 MG TAB PO SCH (08:03)
[2020-06-20] MEDS: METOPROLOL TARTRATE 25 MG TAB PO SCH ×2 (08:03→21:58)
[2020-06-20] MEDS: hydrALAZINE 10 MG TAB PO SCH ×2 (08:04→21:58)
[2020-06-20 10:10] LABS: Partial Thromboplastin Ratio 2.3
[2020-06-20 10:21] LABS: Partial Thromboplastin Time 63.3 Seconds (21.0-31.0)
--- NOTE | 2020-06-20 10:48 | Nephrology Progress Note ---
Date of Service June 20, 2020 Assessment & Plan (1) Acute kidney injury superimposed on CKD: Patient with acute kidney injury on CKD likely due to cardiorenal syndrome. Baseline creatinine in the mid twos. Creatinine today of 3.6. She has hyperkalemia. Patient also being treated for PE with heparin drip. She is none oliguric. She made 1 L of urine on Lasix drip yesterday. Patient will likely require dialysis this admission if she does not respond to diuresis. Will attempt diuresis. -Continue Lasix drip at 15 at least keep her even to slightly net negative -Monitor input output and daily BMP -Avoid nephrotoxins such as contrast unless lifesaving (2) Acute on chronic diastolic CHF (congestive heart failure): Patient with diastolic CHF and moderate aortic stenosis. Recent echo showed EF of 60%. Chest x-ray showing pulmonary edema. -We will continue Lasix drip at 15 mg/h. -Patient should be on a cardiac diet if eating. (3) Hyperkalemia: Recent potassium of 5.1 which is above target. Patient received Kayexalate and had a large bowel movement yesterday. Will monitor potassium daily. -Lasix should help with kaliuresis if patient responds. -Low K diet Admission and Anticipated Discharge Date Admission Date: June 18, 2020 Subjective Patient denies any shortness of breath. She gives minimal history. She is extremely hard of hearing. She was +500 mL. She is on heparin drip for possible PE and Lasix drip. Review of Systems Review of Systems: All systems reviewed & are unremarkable except as noted in HPI & below Physical Exam Physical Exam: General exam: Appears comfortable, no acute distress HEENT: Pupils are equal and reactive to light Neck: No JVD, neck is supple trachea is midline Respiratory system: Clear breath sounds bilaterally. Gastrointestinal: Abdomen is soft, non distended, non tender, bowel sounds are present CVS: Regular rate and rhythm. No murmurs, rubs or gallops Musculoskeletal: No joint or muscle tenderness Extremities: Non tender, 2+ edema, warm peripheries Neuro: Oriented, hard of hearing, no tremors, no focal neurological deficits Skin: No rashes Results & Data ([facility]) Vital Signs (Past 12 Hours) Vital Signs Temp Pulse Pulse Pulse Resp BP Pulse Ox 06/20/20 08:00 36.7 C 73 18 155/71 H 90 06/20/20 07:29 70 06/20/20 03:39 36.5 C 70 18 117/62 92 06/19/20 23:46 61 Laboratory Results 06/20/20 01:45 EST 06/20/20 01:45 EST WBC 5.60 RBC 4.00 L MCV 99.0 MCH 29.0 MCHC 29.3 L RDW Std Deviation 59.7 H RDW Coeff of Tasia 16.5 H Plt Count 57 L MPV 10.2
--- NOTE | 2020-06-20 11:19 | Electrocardiogram Report ---
Test Reason : Blood Pressure : / mmHG Vent. Rate : 069 BPM Atrial Rate : 069 BPM P-R Int : 166 ms QRS Dur : 086 ms QT Int : 386 ms P-R-T Axes : 025 010 012 degrees QTc Int : 413 ms Sinus rhythm with Premature atrial complexes Low voltage QRS Diffuse Nonspecific T wave abnormality Abnormal ECG When compared with ECG of 19-JUN-2020 06:42, No significant change was found Confirmed by Reese Edwards ([id number]) on 06/20/2020 11:18:46 AM Referred By: Karina Pham Confirmed By:Reese Edwards
--- NOTE | 2020-06-20 13:20 | Cardiology Progress Note ---
Date of Service June 20, 2020 Assessment & Plan (1) Acute respiratory failure with hypoxia: (2) Pulmonary embolism: (3) Acute right-sided heart failure: (4) Chronic ITP (idiopathic thrombocytopenia): (5) Aortic stenosis: (6) CKD (chronic kidney disease), stage IV: (7) Hypertension: (8) Acute kidney injury superimposed on CKD: Clinically patient is doing well. Anticoagulation was started for likely pulmonary embolism. DVT is also discovered. Acute right-sided heart failure secondary to the pulmonary embolism. End-stage renal disease declining hemodialysis. Diuresis being attempted by our nephrology colleagues with significant possibility for the need for hemodialysis this admission. Continue outpatient doses of aspirin, amlodipine, atorvastatin, metoprolol and hydralazine. Continue to monitor on telemetry. Admission and Anticipated Discharge Date Admission Date: June 18, 2020 Subjective Patient seen and examined, chart reviewed. Seated upright in bed eating lunch. Denies complaints. Specifically denies chest pain, shortness of breath, palpitations, lightheadedness or dizziness. Telemetry reviewed: Normal sinus rhythm without arrhythmia or significant ectopy. Review of Systems Review of Systems: All systems reviewed & are unremarkable except as noted in HPI & below Physical Exam Physical Exam: General: Awake, alert and oriented x 3. No acute distress. Very hard of hearing. HEENT: Normocephalic, atraumatic. Pupils equal, round and reactive to light and accommodation. Extraocular muscles are intact. Anicteric sclera. Moist mucous membranes. Neck: No JVD. No bruit. Cardiovascular: Regular. Positive S-4. Normal S-1 and S-2. No S-3. 3/6 mid to late systolic ejection murmur, greatest at the right sternal border, second intercostal space with radiation to the bilateral carotids. No rubs. Pulmonary: Clear to auscultation bilaterally. No rales, rhonchi, or wheezing. Abdomen: Bowel sounds x 4, soft. No rebound, guarding or tenderness. No or ganomegaly. Extremities: No clubbing, cyanosis or edema. +2 pedal pulses bilaterally. Skin: Warm and dry. Results & Data ([facility]) Vital Signs (Past 12 Hours) Vital Signs Temp Pulse Pulse Pulse Resp BP Pulse Ox 06/20/20 11:54 36.0 C L 60 20 130/69 91 11/01/20 08:00 36.7 C 73 18 155/71 H 90 06/20/20 07:29 70 06/20/20 03:39 36.5 C 70 18 117/62 92
--- NOTE | 2020-06-20 15:36 | Hospitalist Progress Note ---
Date of Service June 20, 2020 Assessment & Plan (1) Acute respiratory failure with hypoxia: -Patient sent from PCPs office : for respiratory failure , hypoxia , wosening of lower extremity edema, and exertional shortness of breath, -In the ED, patient hypoxic on room air at 85%, required 5 L 02 pt remains persistently hypoxic /cause : multifactorial : 1. Possible secondary to pulmonary emboli causing right heart failure cor pulmonale Echo shows significantly dilated RV, with evidence of increased pulmonary hypertension Lower extremity Doppler positive for DVT on left popliteal vein 2.Fluid overload /decompensated CHF due to acute renal failure with advanced Stage 5 CKD Patient started on IV heparin low-dose weight-based protocol, history of ITP,- choice of anticoagulation discussed with hematology oncology Dr. Man Castro over all prognosis remains poor (2) Acute on chronic diastolic CHF (congestive heart failure): -CXR showing signs of CHF, proBNP 14,000 Acute right heart failure secondary to cor pulmonale pulmonary hypertension possibly underlying large PE, Echo dilated RV with evidence of pulmonary hypertension pt also in oliguric renal failure /acute renal failure with advanced stage v CKD , on IV lasix gtt -minimum urine out put -causing continued vol overload spoke with patient does not want Dialysis aware that with out dialysis her chance of survival is poor Palliative care consulted plan of care d/w Daughter present at bedside-agrees with palliative care consult -pt has advanced directive and living will -where pt declined to have any heroic measures - (3) Aortic stenosis: (4) Acute kidney injury superimposed on CKD: Advanced CKD stage IV v GFR less than 20 Worsening of renal function renal failure secondary to cold pulmonal /cardiorenal syndrome Patient input from nephrology, Ordered IV Lasix drip-minimum urine out put pt has refused dialysis past several years , does not want stay alive on chronic dialysis Palliative care consulted (5) CKD (chronic kidney disease), stage IV: - (6) Hyperkalemia: Due to acute renal failure on IV Lasix drip, (7) Hypertension: (8) Chronic ITP (idiopathic thrombocytopenia): On IV heparin weight-based protocol, overall prognosis poor Dc As (9) DVT prophylaxis: -IV heparin CODE STATUS d/w pt and Daughter has living will : DNR/DNI Admission and Anticipated Discharge Date Admission Date: June 18, 2020 Subjective pt is more fatigue and lethargic today remains hypoxic poor urine out put offers no new complain Daughter present at bedside Physical Exam Constitutional: WD/WN, vitals as above + ill appearing Eyes: + anicteric sclerae ENMT: external ear and nose normal, oropharynx normal Neck: trachea midline, no thyromegaly Respiratory: + respiratory distress Auscultation: + crackles and + rales Cardiovascular: Rate/Rhythm: regular rate and regular rhythm Extremities: + edema Gastrointestinal (Abdomen): Percussion/Palpation: abdomen soft; abdomen nontender Neurologic: PERRL, EOMI, accommodation nl, no face palsy, no dysarthria Psychiatric: Orientation: oriented to person and oriented to place tired /fatigued Results & Data Results & Data ([facility]) Vital Signs (Past 12 Hours) Vital Signs Temp Pulse Pulse Pulse Resp BP Pulse Ox 06/20/20 14:41 67 06/20/20 11:54 36.0 C L 60 20 130/69 91 06/20/20 08:00 36.7 C 73 18 155/71 H 90 06/20/20 07:29 70 06/20/20 03:39 36.5 C 70 18 117/62 92
[2020-06-20] MEDS: HEPARIN SODIUM/DEXTROSE 25,000 UNITS/500 ML BAG IV SCH (20:28)
[2020-06-20] MEDS ORDERED: Nursing to Pharmacy Communication SCH (22:15)
[2020-06-21] MEDS: FUROSEMIDE 100 MG in DEXTROSE 5% 90 ML IV SCH ×4 (04:45→17:30)
[2020-06-21 07:25] LABS: Hematocrit (blood only) 38.9 % (37-47); Hemoglobin 11.3 g/dL (12.0-16.0); Mean Corpuscular Hemoglobin 28.7 pg (25-34); Mean Corpuscular Volume 98.7 fL (80-100); Nucleated RBC # (auto) 0.04 K/uL (0-0); Nucleated RBC % (auto) 0.6 %; RDW Coefficient of Variation 16.5 % (11.5-14.5); RDW Standard Deviation 59.1 fL (36.4-46.3); Red Blood Count 3.94 M/uL (4.2-5.4)
[2020-06-21 07:34] LABS: Mean Platelet Volume 9.9 fL (7.4-10.4); Platelet Count 48 K/uL (130-400)
[2020-06-21 07:46] LABS: Partial Thromboplastin Ratio 2.2
[2020-06-21] MEDS: METOPROLOL TARTRATE 25 MG TAB PO SCH (07:46)
[2020-06-21] MEDS: hydrALAZINE 10 MG TAB PO SCH (07:46)
[2020-06-21 07:50] LABS: Partial Thromboplastin Time 60.5 Seconds (21.0-31.0)
[2020-06-21 07:53] LABS: Eosinophils # (auto) 0.06 K/uL (0-0.5); Eosinophils % (auto) 1.1 %; Immature Granulocytes # (auto) 0.04 K/uL (0.00-0.02); Immature Granulocytes % (auto) 0.7 %; Lymphocytes # (auto) 0.43 K/uL (1.2-3.4); Lymphocytes % (auto) 7.7 %; Monocytes % (auto) 5.4 %; Neutrophils # (auto) 4.77 K/uL (1.4-6.5); Neutrophils % (auto) 85.1 %
[2020-06-21 07:57] LABS: BUN Creatinine Ratio 24.8 (10-20); Calcium 8.1 mg/dl (8.5-10.1); Creatinine Clr Calc Pharmacy 12.7 ml/min; Est GFR (Non-African American) 9.5; Potassium 4.9 mmol/L (3.5-5.1)
[2020-06-21] MEDS: PANTOprazole 40 MG TAB PO SCH (08:01)
[2020-06-21] MEDS ORDERED: metOLazone 5 MG TABLET PO SCH (09:45)
--- NOTE | 2020-06-21 10:21 | Progress Notes ---
DATE: 06/21/2020 NEPHROLOGY PROGRESS NOTE SUBJECTIVE: The patient's condition remains stable, but serious. Kidney function continues to get worse. Renal output is still low, but hopefully improving. The patient is not able to give me any history. She is, however, alert and following simple command. OBJECTIVE: VITAL SIGNS: Blood pressure is 142/69, pulse rate 87, temperature 36.5 degrees Celsius, 90% on 4 L OxyMask. HEENT: Mucous membrane is moist. NECK: Jugular venous distention positive. CHEST: Bilateral decreased breath sounds with crackles and rhonchi, but poor inspiratory effort. CARDIOVASCULAR: S1 and S2 irregular. Soft systolic murmur heard. ABDOMEN: Soft, nontender. EXTREMITIES: Show 3-4+ edema, pitting type. LABORATORY TEST: From this morning shows hemoglobin 11.3, platelet count 48,000. BUN is rising and is up to 100. Creatinine is rising and is up to 4.03. Potassium is better at 4.9. ASSESSMENT: An 85-year-old female likely admitted with pulmonary embolism causing acute renal failure secondary to acute tubular necrosis/cardiorenal syndrome as well as congestive heart failure. PLAN AND RECOMMENDATIONS: 1. Add metolazone 5 mg starting now and daily. 2. Increase Lasix drip to 20 mg per hour. 3. The patient is a very, very poor candidate for dialysis, if any. At this time, unable to discuss with the patient given her orientation and cognition status. However, I would like to escalate the diuretics significantly before making any plans for dialysis. [facility] SYSTEMKinga
--- NOTE | 2020-06-21 13:07 | Cardiology Progress Note ---
Date of Service June 21, 2020 Assessment & Plan (1) Acute respiratory failure with hypoxia: (2) Pulmonary embolism: (3) Acute right-sided heart failure: (4) Chronic ITP (idiopathic thrombocytopenia): (5) Aortic stenosis: (6) CKD (chronic kidney disease), stage IV: (7) Hypertension: (8) Acute kidney injury superimposed on CKD: Clinically patient is doing well. Anticoagulation was started for likely pulmonary embolism. DVT is also discovered. Acute right-sided heart failure secondary to the pulmonary embolism. End-stage renal disease declining hemodialysis. Diuresis being attempted by our nephrology colleagues with significant possibility for the need for hemodialysis this admission. Continue outpatient doses of aspirin, amlodipine, atorvastatin, metoprolol and hydralazine. Continue to monitor on telemetry. Admission and Anticipated Discharge Date Admission Date: June 18, 2020 Subjective Patient seen and examined, chart reviewed. Patient very hard of hearing but denies any cardiac complaints. Specifically denies any chest pain, shortness of breath, palpitations, lightheadedness, dizziness or syncope. Telemetry reviewed: Sinus rhythm with frequent PACs. No sustained arrhythmias. Review of Systems Review of Systems: All systems reviewed & are unremarkable except as noted in HPI & below Physical Exam Physical Exam: General: Awake, alert and oriented x 3. No acute distress. Very hard of hearing. HEENT: Normocephalic, atraumatic. Pupils equal, round and reactive to light and accommodation. Extraocular muscles are intact. Anicteric sclera. Moist mucous membranes. Neck: No JVD. No bruit. Cardiovascular: Regular. Positive S-4. Normal S-1 and S-2. No S-3. 3/6 mid to late systolic ejection murmur, greatest at the right sternal border, second intercostal space with radiation to the bilateral carotids. No rubs. Pulmonary: Clear to auscultation bilaterally. No rales, rhonchi, or wheezing. Abdomen: Bowel sounds x 4, soft. No rebound, guarding or tenderness. No organomegaly. Extremities: No clubbing, cyanosis or edema. +2 pedal pulses bilaterally. Skin: Warm and dry. Results & Data ([facility]) Vital Signs (Past 12 Hours) Vital Signs Temp Pulse Pulse Resp BP Pulse Ox 06/21/20 11:30 35.8 C L 69 22 91 11/02/20 07:34 36.5 C 87 26 H 142/69 H 90 06/21/20 07:22 82 06/21/20 03:34 36.4 C L 84 20 121/65 89 L
[2020-06-21] MEDS: MICONAZOLE NITRATE POWDER 43 GM EXT SCH (13:12)
--- NOTE | 2020-06-21 13:56 | Palliative Care Consultation ---
Date of Consultation June 21, 2020 Assessment & Plan (1) Palliative care encounter: This is an 85 year old who presented to the [facility] ED from recommendation by her PCP as she was found to be hypoxic and was experiencing worsening LE edema. Additional PMH includes Aortic Stenosis, Chronic ITP, CKD Stage IV, HLD, GERD, HTN and pHTN. Anticoagulation was started for possible pulmonary embolism and she was found to have a DVT as well. Overall. this patient has worsening co- morbidities and is to the point of conversation of whether she would wish to pursue hemodialysis. Patient and family has indicated they do not wish to pursue hemodialysis.Palliative Care was consulted to discuss goals of care. I was able to meet extensively with Ms. Mccloud's daughter, Missy, in person to discuss her mothers goals of care. We discussed her overall decline and she indicated she knows that her mother would not want aggressive measures taken if her quality of life could not be restored. She mentioned that her mother watched another relative pursue hemodialysis and was clear she would not want to put herself through that. The patients renal status prior to admission was poor at best with a GFR of 15, now down to 11. Her creatinine is steadily increasing this admission, now up to 4.8. We discussed options that included home with hospice, or transitioning to hospice here. Unfortunately, her mother is showing signs of decline from a respiratory standpoint. Missy is realistic knowing her mother is declining. She would like to discuss with her sister Magali at length regarding the full transition to comfort measures. Update: I talked with the patients nurse who mentioned her breathing was worsening. She went from 6LNC to 10 L oxymask and her SPO2 appears to have worsened. I entered the room, she does have a dusky appearance. She continues to be arousable and did answer some yes and no questions, unreliably. I phoned Missy again and indicated that I so want her to talk with her sister this evening, but asked if she was comfortable with comfort medications being available should they be necessary now and into this evening. She agreed that we can give Roxanol for comfort and air hunger. Continue all other current treatment for now. Confirmed no escalation in care meaning no bipap, no ICU, no pressors, no intubation which would allign with her mothers wishes. Anticipate the daughter to call in this evening or we will follow up tomorrow to continue to assist the patient's family with a transition to full comfort measures. I did order Roxanol and Robinul should she decline overnight. (2) Acute on chronic diastolic CHF (congestive heart failure): (3) Aortic stenosis: (4) Thrombocytopenia: History of Present Illness Reason for Consultation: Goals of care Requesting Physician: Dr. Miramontes Attending Physician: Elvie Miramontes MD History of Present Illness This is an 85 year old who presented to the [facility] ED from recommendation by her PCP as she was found to be hypoxic and was experiencing worsening LE edema. Additional PMH includes Aortic Stenosis, Chronic ITP, CKD Stage IV, HLD, GERD, HTN and pHTN. Anticoagulation was started for possible pulmonary embolism and she was found to have a DVT as well. Overall. this patient has worsening co- morbidities and is to the point of conversation of whether she would wish to pursue hemodialysis. Patient and family has indicated they do not wish to pursue hemodialysis.Palliative Care was consulted to discuss goals of care. Please see A/P for further details. Thank you kindly for involving the Palliative Care Consultation Service with this patient. Allergies Allergy/AdvReac Type Severity Reaction Status Date / Time No Known Allergies Allergy Unverified 06/18/20 18:00 Home Medications Home Medications Medication Instructions Recorded Confirmed Type amlodipine 10 mg PO DAILY 06/18/20 06/18/20 History aspirin [Aspirin Low Dose] 81 mg PO DAILY 06/18/20 06/18/20 History atorvastatin 10 mg PO PM 06/18/20 06/18/20 History hydralazine 10 mg PO BID 06/18/20 06/18/20 History metoprolol tartrate 25 mg PO BID 06/18/20 06/18/20 History pantoprazole 20 mg PO DAILY 06/18/20 06/18/20 History Patient History Medical History (Updated 06/21/20 @ 13:55 by SHARDA Alexandre) Aortic stenosis Chronic ITP (idiopathic thrombocytopenia) CKD (chronic kidney disease), stage IV Diastolic dysfunction Dyslipidemia GERD (gastroesophageal reflux disease) Hip fracture, right S/p repair Hypertension Palliative care encounter Pulmonary hypertension Surgical History History of cataract surgery History of tonsillectomy and adenoidectomy Family History Mother Heart disease Social History Smoking Status: Never smoker Hx Alcohol Use: Yes Hx Substance Use: No Preferred Language: Hebrew Communication Ability: Effective [employer] Traffic [employer] Required: No Beliefs That Will Affect Care: None marital status: Unknown Current Living Situation: Alone Feels Safe at Home: Yes Safety Concerns: Feels Safe At This Time Assistive Devices: Glasses and Oxygen - Continuous Assistive Devices Comment: has own walker Review of Systems Review of Systems: Unobtainable due to reduced consciousness Physical Exam Constitutional: + frail appearing; + uncooperative, + uncomfortable and not combative Neck: trachea midline, no thyromegaly Respiratory: Auscultation: + diminished lung sounds Cardiovascular: Rate/Rhythm: regular rate and regular rhythm Extremities: + edema; + abnormal capillary refill Gastrointestinal (Abdomen): normal bowel sounds, soft, nontender, no hepa tosplenomegaly Percussion/Palpation: abdomen soft Skin: + dry skin and + excoriations (some skin tears noted) Psychiatric: Orientation: alert Insight: + severely impaired insight Judgement: + severely impaired judgement Results & Data ([facility]) Vital Signs (Past 12 Hours) Vital Signs Temp Pulse Pulse Resp BP Pulse Ox 06/21/20 11:30 35.8 C L 69 22 91 06/21/20 07:34 36.5 C 87 26 H 142/69 H 90 06/21/20 07:22 82 06/21/20 03:34 36.4 C L 84 20 121/65 89 L PG Care Time/CCT Total # of Minutes Spent Total Time Spent with Patient: Total time spent is greater than 50% in c oordination of care (as documented) at patient's floor/unit and/or counseling patient: 100 Coding Level of Care Code 46460 Inpt Consult Level 4 Diagnoses Palliative care encounter Z51.5 Acute on chronic diastolic CHF (congestive heart failure) I50.33 Aortic stenosis I35.0 Thrombocytopenia D69.6 Time Spent (min) 100 Time Spent Midlevel Total time spent 100 minutes with > 50% of that time spent assessing the patient , discussing goals of care with the family and collaborating with the IDT
--- NOTE | 2020-06-21 15:59 | Communication Note ---
Date of Service: June 21, 2020 Appreciate input from Palliative care pt is showing S/s of volume overload /uremia -obtunded , requiring more 02 support , respiratory failure Daughter Fatou willing to transition care to Hospice , comfort care only she will discuss with rest of the family members, plan is to transition to comfort care tomorrow Elvie Miramontes MD
[2020-06-21] MEDS ORDERED: MoRPHine SULFATE 5 MG/0.25 ML UDP PO PRN (17:19)
--- NOTE | 2020-06-21 18:07 | Hospitalist Progress Note ---
Date of Service June 21, 2020 Assessment & Plan (1) Acute respiratory failure with hypoxia: COMFORT CARE /HOSPICE : progressive respiratory distress / PE /Volume overload with end stage renal failure /right sided health failure Family aware of poor prognosis appreciate input from palliative care pt is changed to comfort care only (2) Acute on chronic diastolic CHF (congestive heart failure): -CXR showing signs of CHF, proBNP 14,000 Acute right heart failure secondary to cor pulmonale pulmonary hypertension possibly underlying large PE, Echo dilated RV with evidence of pulmonary hypertension pt also in oliguric renal failure /acute renal failure with advanced stage v CKD , on IV lasix gtt -minimum urine out put -causing continued vol overload spoke with patient does not want Dialysis aware that with out dialysis her chance of survival is poor Palliative care consulted pt is on comfort care only -discussed with daughter (3) Aortic stenosis: - (4) Acute kidney injury superimposed on CKD: Advanced CKD stage IV v GFR less than 20 Worsening of renal function renal failure secondary to cold pulmonal /cardiorenal syndrome Patient input from nephrology, Ordered IV Lasix drip-minimum urine out put pt has refused dialysis past several years , does not want stay alive on chronic dialysis Palliative care consulted /pt is currently on comfort care/hospice (5) CKD (chronic kidney disease), stage IV: - (6) Hyperkalemia: (7) Hypertension: (8) Chronic ITP (idiopathic thrombocytopenia): (9) DVT prophylaxis: CODE STATUS DNR/DNI Admission and Anticipated Discharge Date Admission Date: June 18, 2020 Subjective patient made comfort care /hospice very poor prognosis progressive hypoxia Spo2 85% in 10 L 02 D/w Daughter wants her mother to be comfortable only aware that pt's life expectancy could be hours to days Physical Exam Constitutional: + ill appearing Respiratory: + respiratory distress Auscultation: + crackles and + rales Cardiovascular: Rate/Rhythm: regular rate and regular rhythm Extremities: + edema Results & Data Results & Data ([facility]) Vital Signs (Past 12 Hours) Vital Signs Temp Pulse Pulse Resp BP Pulse Ox 06/21/20 16:00 77 06/21/20 15:57 36.4 C L 76 22 142/60 H 85 L 06/21/20 11:30 35.8 C L 69 22 91 06/21/20 07:34 36.5 C 87 26 H 142/69 H 90 06/21/20 07:22 82
[2020-06-21] MEDS ORDERED: ONDANSETRON INJ 2 MG/ML 2 ML VIAL IV PRN (18:27)
[2020-06-21] MEDS ORDERED: ONDANSETRON 4 MG OD TAB SL PRN (18:27)
[2020-06-21] MEDS ORDERED: PROMETHAZINE HCL 12.5 MG in SODIUM CHLORIDE 0.9% 50 ML IV PRN (18:27)
[2020-06-21] MEDS ORDERED: LORazepam 0.5 MG/1 ML VIAL IV PRN (18:27)
[2020-06-21 19:02] VITALS: BP 135/66; PULSE 81; TEMP 97.9; O2SAT 90
[2020-06-22] MEDS: LORazepam 0.5 MG TAB PO PRN (01:05)
[2020-06-22] MEDS: MICONAZOLE NITRATE POWDER 43 GM EXT SCH (10:22)
[2020-06-22] MEDS: ATROPINE SULFATE 1% OP SOLN 2 ML BTL SL PRN (15:39)
[2020-06-22] MEDS ORDERED: ONDANSETRON 4 MG OD TAB SL PRN (16:54)
[2020-06-22] MEDS ORDERED: LORazepam 0.5 MG/1 ML VIAL IV PRN (16:54)
[2020-06-22] MEDS ORDERED: LORazepam 0.5 MG TAB PO PRN (16:54)
[2020-06-22] MEDS ORDERED: ATROPINE SULFATE 1% OP SOLN 2 ML BTL SL PRN (16:54)
[2020-06-22] MEDS ORDERED: ONDANSETRON INJ 2 MG/ML 2 ML VIAL IV PRN (16:54)
--- NOTE | 2020-06-22 17:08 | Palliative Care Progress Note ---
Date of Service June 22, 2020 Assessment & Plan (1) Palliative care encounter: Continue morphine as needed for pain and dyspnea. With her stage IV CKD, we will monitor frequency. If she is using frequently, there is risk of toxicity with morphine metabolites and we will need to change opioid. Recommend ativan as needed for anxiety. I did update her daughter, Missy. She has discussed care plan with her sister and they would like comfort measures only. Orders were changed to reflect this. (2) Acute right-sided heart failure: (3) Pulmonary embolism: (4) Acute respiratory failure with hypoxia: (5) CKD (chronic kidney disease), stage IV: Admission and Anticipated Discharge Date Admission Date: June 18, 2020 Subjective Restless with tachypnea earlier. She received roxanol with some relief. She c/o feeling cold and blankets were adjusted. She denies pain or dyspnea. Granddaughter is at bedside. Review of Systems Review of Systems: [place] Symptom ASsessment Scale Pain 0/3 Dyspnea 0/3 Anxiety 1/3 Nausea 0/3 Physical Exam Constitutional: mildly restless Respiratory: tachypnea Cardiovascular: Rate/Rhythm: regular rate and regular rhythm pitting edema lower extremities Skin: warm and dry Psychiatric: Affect: + anxious affect PG Care Time/CCT Total # of Minutes Spent Total Time Spent with Patient: Total time spent is greater than 50% in coordination of care (as documented) at patient's floor/unit and/or counseling patient:27 minutes with more than 50% of time spent of symptom management, goals of care and prognosis Coding Level of Care Code 83799 Subseq Hosp Care Lvl 2 Diagnoses Palliative care encounter Z51.5 Acute right-sided heart failure I50.811 Pulmonary embolism I26.99 Acute respiratory failure with hypoxia J96.01 CKD (chronic kidney disease), stage IV N18.4 Time Spent (min) 27
[2020-06-22] MEDS: MoRPHine SULFATE 5 MG/0.25 ML UDP PO PRN (20:07)
[2020-06-23] MEDS: LORazepam 0.5 MG TAB PO PRN (01:34)
[2020-06-23] MEDS: MoRPHine SULFATE 5 MG/0.25 ML UDP PO PRN ×6 (01:37→14:24)
[2020-06-23] MEDS: ATROPINE SULFATE 1% OP SOLN 2 ML BTL SL PRN ×3 (01:38→10:59)
--- NOTE | 2020-06-23 07:49 | Hospitalist Progress Note ---
Date of Service June 23, 2020 Assessment & Plan (1) Acute respiratory failure with hypoxia: COMFORT CARE /HOSPICE : progressive respiratory distress / PE /Volume overload with end stage renal failure /right sided health failure Family aware of poor prognosis appreciate input from palliative care pt is currently on comfort care hospice (2) Acute on chronic diastolic CHF (congestive heart failure): -CXR showing signs of CHF, proBNP 14,000 Acute right heart failure secondary to cor pulmonale pulmonary hypertension possibly underlying large PE, Echo dilated RV with evidence of pulmonary hypertension pt also in oliguric renal failure /acute renal failure with advanced stage v CKD , on IV lasix gtt -minimum urine out put -causing continued vol overload spoke with patient does not want Dialysis aware that with out dialysis her chance of survival is poor Palliative care consulted pt is on comfort care only -discussed with daughter (3) Aortic stenosis: - (4) Acute kidney injury superimposed on CKD: Advanced CKD stage IV v GFR less than 20 Worsening of renal function renal failure secondary to cold pulmonal /cardiorenal syndrome see by Nephrology pt has refused dialysis past several years , does not want stay alive on chronic dialysis Palliative care consulted /pt is currently on comfort care/hospice (5) CKD (chronic kidney disease), stage IV: - (6) Hyperkalemia: (7) Hypertension: (8) Chronic ITP (idiopathic thrombocytopenia): (9) DVT prophylaxis: CODE STATUS DNR/DNI on comfort care very poor prognosis , likely will during this hospital stay Admission and Anticipated Discharge Date Admission Date: June 18, 2020 Subjective LATE ENTRY 06/22/20 REMAINS IN COMFORT CARE HOSPICE very lethergic , no sign of distress Grand daughter present at bedside
[2020-06-23] MEDS: GLYCOPYRROLATE 0.2 MG/ML VIAL IV PRN ×2 (09:18→12:44)
[2020-06-23] MEDS: MICONAZOLE NITRATE POWDER 43 GM EXT SCH (10:39)
[2020-06-23] MEDS ORDERED: STAT IV Infusion **Titration per Protocol STA (11:09)
[2020-06-23] MEDS ORDERED: MoRPHine SULF/NSS 250 MG/250 ML BTL IV PRN (11:15)
--- NOTE | 2020-06-23 14:02 | Palliative Care Progress Note ---
Date of Service June 23, 2020 Assessment & Plan (1) Palliative care encounter: She appears to be actively dying. I did discuss with nurse case management that she is likely to within hours and would not be appropriate for transfer at this time. I tried to call Missy, but there was no answer. Mirta appears quite comfortable. Despite renal impairment, she is tolerating morphine with no signs of myoclonus, allodynia or agitation. Will continue for now. She has anticholinergic medications available for tracheal secretions which are reasonably well controlled. (2) Acute respiratory failure with hypoxia: (3) Acute right-sided heart failure: (4) Acute kidney injury superimposed on CKD: Admission and Anticipated Discharge Date Admission Date: June 18, 2020 Subjective Resting comfortably in bed with agonal respirations. She has had 30OME of roxanol in the last 24 hours for tachypnea and restlessness. Review of Systems Review of Systems: Unobtainable due to cognitive status [place] Symptom Assessment Scale Pain 0/3 Pain AD Dyspnea 0/3 RDOS Anxiety 0/3 Secretions 1/3 Physical Exam Constitutional: + lethargic Respiratory: agonal breathing with mild audible rhonchi Cardiovascular: Extremities: + edema Gastrointestinal (Abdomen): Percussion/Palpation: abdomen nontender Musculoskeletal: cool to touch Neurologic: + obtunded no myoclonus PG Care Time/CCT Total # of Minutes Spent Total Time Spent with Patient: Total time spent is greater than 50% in coordination of care (as documented) at patient's floor/unit and/or counseling patient: 25 minutes total with more than 50% of time spent on coordination of care, symptom management. Coding Level of Care Code 71712 Subseq Hosp Care Lvl 2 Diagnoses Palliative care encounter Z51.5 Acute respiratory failure with hypoxia J96.01 Acute right-sided heart failure I50.811 Acute kidney injury superimposed on CKD N17.9; N18.9 Time Spent (min) 25
--- NOTE | 2020-06-23 15:06 | Hospitalist Progress Note ---
Date of Service Late entry Date of service noted below June 23, 2020 Assessment & Plan (1) Acute respiratory failure with hypoxia: COMFORT CARE /HOSPICE : progressive respiratory distress / PE /Volume overload with end stage renal failure /right sided health failure Family aware of poor prognosis appreciate input from palliative care Transition to comfort measures Patient pronounced 06/23/2020 Patient's daughter was outside the room, informed of event, condolences extended to family (2) Acute on chronic diastolic CHF (congestive heart failure): Per Dr. Miramontes notes -CXR showing signs of CHF, proBNP 14,000 Acute right heart failure secondary to cor pulmonale pulmonary hypertension possibly underlying large PE, Echo dilated RV with evidence of pulmonary hypertension pt also in oliguric renal failure /acute renal failure with advanced stage v CKD , on IV lasix gtt -minimum urine out put -causing continued vol overload spoke with patient does not want Dialysis aware that with out dialysis her chance of survival is poor Palliative care consulted pt is on comfort care only (3) Aortic stenosis: - (4) Acute kidney injury superimposed on CKD: Per Dr. Miramontes notes Advanced CKD stage IV v GFR less than 20 Worsening of renal function renal failure secondary to cold pulmonal /cardiorenal syndrome pt has refused dialysis past several years , does not want stay alive on chronic dialysis Palliative care consulted (5) CKD (chronic kidney disease), stage IV: - (6) Hyperkalemia: Due to acute renal failure given IV Lasix drip (7) Hypertension: -BP controlled, continue amlodipine, metoprolol, hydralazine (8) Chronic ITP (idiopathic thrombocytopenia): On IV heparin weight-based protocol, overall prognosis poor Dc As (9) DVT prophylaxis: Admission and Anticipated Discharge Date Admission Date: June 18, 2020 Subjective Follow-up for respiratory failure, comfort measures status only Seen at bedside Obtunded, not in distress Patient's RN reports of administering IV morphine due to tachypnea Ordered as needed morphine drip for worsening of tachypnea Informed by RN patient to cease breathing, no pulse Evaluated at bedside No heart rate, respiration, pupils fixed and dilated Patient pronounced Review of Systems Review of Systems: Unobtainable due to cognitive status Physical Exam Physical Exam: Physical exam in the morning General: Not in distress Lungs: Mild rhonchi bilaterally Cardiac: Mild tachycardia Extremities: Positive edema
--- NOTE | 2020-06-27 16:03 | Discharge Summary ---
Date of Service June 27, 2020 Admission HPI Per Admitting Provider 85-year-old female with PMH pulmonary hypertension, aortic stenosis, HTN, diastolic dysfunction, CKD stage IV, and other problems listed below who presents the ED for evaluation of fatigue and shortness of breath. History is limited from the patient due to hearing impairment. History is obtained from patient's granddaughter who is the bedside. Patient has been having increasing fatigue over the past 2 weeks and has been sleeping a lot. She also has developed shortness of breath on minimal exertion. Over the past few days, lower extremity edema has been worsening. Patient was seen by PCPs office today and found to be hypoxic and was referred to the ED for further evaluation. No other recent illnesses, fevers, chills. Patient denies chest pain. No lightheadedness, dizziness, diaphoresis, syncopal events. Denies abdominal pain, nausea, vomiting, diarrhea. No urinary symptoms. In the ED, patient was hypoxic on room air at 85%, currently saturating well on 4 L of oxygen via nasal cannula. CXR shows signs of CHF, proBNP 14,000. Creatinine 3.5 (up from baseline of the mid twos). K+ 6.0. Patient was given Lasix 40 mg IV. Admission Exam Per Admitting Provider Constitutional: WD/WN, vitals as above + obese Eyes: PERRL, conjunctivae normal, anicteric sclerae ENMT: external ear and nose normal, oropharynx normal Ears: + hearing impairment Respiratory: normal respiratory effort; no respiratory distress Auscultation: + diminished lung sounds (Bilaterally) Cardiovascular: Rate/Rhythm: regular rate and regular rhythm Heart Sounds: + murmur (Systolic, grade 3/6) Vessels: normal peripheral pulses Extremities: + edema (+3 pitting edema BLE) Gastrointestinal (Abdomen): normal bowel sounds, soft, nontender, no hepatosplenomegaly Musculoskeletal: no cyanosis or clubbing, extremities motor strength 5/5 Skin: no rashes, warm and dry Chronic erythema/venous changes noted to BLE Neurologic: PERRL, EOMI, accommodation nl, no face palsy, no dysarthria Psychiatric: A+Ox3, euthymic affect Principal Diagnosis Acute hypoxic respiratory failure secondary to volume overload, congestive heart failure exacerbation Discharge Exam Patient Discharge Data Allergies Allergy/AdvReac Type Severity Reaction Status Date / Time No Known Allergies Allergy Unverified 06/18/20 18:00 Consultations 06/18/20 18:01 ED Decision to Admit Stat 06/18/20 19:42 Consult Cardiology Routine Consult Nephrology Routine 06/20/20 15:25 Consult Palliative Care Routine 06/21/20 18:27 Consult Case Management - Discharge Planning Routine 06/22/20 16:56 Consult Case Management - Discharge Planning Routine Consult Palliative Care Routine Ordered Studies 06/19/20 11:41 US venous doppler LE BI Routine Hospital Course (1) Acute respiratory failure with hypoxia: COMFORT CARE /HOSPICE : progressive respiratory distress / PE /Volume overload with end stage renal failure /right sided health failure Family aware of poor prognosis appreciate input from palliative care Transition to comfort measures Patient pronounced 06/23/2020 Patient's daughter was outside the room, informed of event, condolences extended to family (2) Acute on chronic diastolic CHF (congestive heart failure): Per Dr. Miramontes notes -CXR showing signs of CHF, proBNP 14,000 Acute right heart failure secondary to cor pulmonale pulmonary hypertension possibly underlying large PE, Echo dilated RV with evidence of pulmonary hypertension pt also in oliguric renal failure /acute renal failure with advanced stage v CKD , on IV lasix gtt -minimum urine out put -causing continued vol overload spoke with patient does not want Dialysis aware that with out dialysis her chance of survival is poor Palliative care consulted pt is on comfort care only (3) Aortic stenosis: - (4) Acute kidney injury superimposed on CKD: Per Dr. Miramontes notes Advanced CKD stage IV v GFR less than 20 Worsening of renal function renal failure secondary to cold pulmonal /cardiorenal syndrome pt has refused dialysis past several years , does not want stay alive on chronic dialysis Palliative care consulted (5) CKD (chronic kidney disease), stage IV: - (6) Hyperkalemia: Due to acute renal failure given IV Lasix drip (7) Hypertension: -BP controlled, continue amlodipine, metoprolol, hydralazine (8) Chronic ITP (idiopathic thrombocytopenia): On IV heparin weight-based protocol, overall prognosis poor Dc As (9) DVT prophylaxis: CODE STATUS DNR/DNI on comfort care very poor prognosis , likely will during this hospital stay Total Time Total Time Spent Total Time Spent (In Minutes): 30 minutes Discharge Plan Discharge Items Patient Disposition:
--- NOTE | 2020-07-05 12:29 | Coding Query ---
CHRONIC KIDNEY DISEASE To promote full compliance with coding requirements relating to patient care, physician participation is requested in all cases of change management facilitator uncertainty. Please assist us with the question(s) below: Coding Question(s): The record reflects conflicting CKD stages. Please specify the known or suspected type by placing an "X" within the parenthesis (x). If other, please document type. Please document Staging if known: ( ) Stage I >90 Kidney damage with normal or elevated GFR. ( ) Stage II 60-89 Kidney damage with mildly decreased kidney function ( ) Stage III 30-59 Moderately decreased kidney function ( x) Stage IV 15-29 Severely decreased kidney function ( ) Stage V <15 Renal failure (or dialysis) ( ) End Stage ( ) Unknown Thank you Sandra FRAUSTO
== END 2020-06-23 14:30 | disposition expired | DRG 291 ==
LOC: ED 15:27 → SUATTDRO 18:03 → 2S 18:03 → 2N 06-20 17:40 → 3W 06-21 20:40
DX: D69.3 Immune thrombocytopenic purpura; I26.09 Other pulmonary embolism with acute cor pulmonale; N18.4 Chronic kidney disease, stage 4 (severe); E87.5 Hyperkalemia; I13.0 Hypertensive heart and chronic kidney disease with heart failure and stage 1 through stage 4 chronic kidney disease, or unspecified chronic kidney disease; I27.29 Other secondary pulmonary hypertension; I08.2 Rheumatic disorders of both aortic and tricuspid valves; K21.9 Gastro-esophageal reflux disease without esophagitis; N17.0 Acute kidney failure with tubular necrosis; I82.812 Embolism and thrombosis of superficial veins of left lower extremity; E66.9 Obesity, unspecified; Z66 Do not resuscitate; H91.90 Unspecified hearing loss, unspecified ear; Z79.82 Long term (current) use of aspirin; J96.01 Acute respiratory failure with hypoxia; Z79.899 Other long term (current) drug therapy; Z51.5 Encounter for palliative care; I50.33 Acute on chronic diastolic (congestive) heart failure; E78.5 Hyperlipidemia, unspecified; N17.8 Other acute kidney failure; Z68.42 Body mass index [BMI] 45.0-49.9, adult